=== PATIENT | female | born 1950 | race Caucasian/White ===

== ENCOUNTER 2020-04-17 07:23 | Outpatient (CLI) | payer MEDICARE, SELFPAY ==
--- NOTE | 2020-04-25 11:52 | SLEEP_ITS ---
Home sleep test. DATE OF STUDY: 04/17/2020 ORDERING PHYSICIAN: Clifofrd Amaya M.D. REASON FOR THE STUDY: EVAN. HISTORY: This patient is a 69-year-old female, 4 feet 11 inches tall, weighing 104 pounds with a body mass index of 21. She has difficulty falling asleep and staying asleep. This has been going on for a [id number]. She has tried melatonin, which did not work at all. She is now taking trazodone 25 mg at night. Also, her blood pressure is not under good control. Her son has severe loud snoring. The patient herself denies snoring, awakening at night with heartburn, awakening from sleep, feeling short of breath. She rarely has trouble sleeping with a cold. She does not gasp for breath at night and does not have breathing problems witnessed by others. She rarely sweats excessively at night. She rarely notices her heart pounding or beating irregularly at night. She does not fall asleep during the day, involuntarily, while driving, with physical effort, and she does not have loss of muscle tone with strong emotion. She rarely has daytime difficulty due to sleepiness. She does not feel paralyzed on waking or falling asleep, does not have vivid dreamlike scenes upon awakening or falling asleep. She is not afraid to go to sleep and does not have nightmares. She rarely remembers her dreams. She occasionally has racing thoughts. She rarely feels sad or depressed. She occasionally has anxiety. She rarely has muscular tension. She does not notice parts of her body jerking, she does not kick at night, have crawly achy feelings in her legs or leg pain at night. She does not have morning jaw pain. She constantly grinds her teeth at night. She rarely is bothered by pain during the day, by pain at night, rarely wakes up feeling stiff in the morning with sore or achy muscles. She rarely has pain in her neck and spine. She does have headaches. Bedtime is 12 midnight, falling asleep within 30 minutes. She typically awakens not every night, but on some nights 1 or 2 times for 15 minutes. When she awakens at night she reads on her iPad. She awakens between 6 and 7 in the morning. She does not take naps. A short nap is not refreshing. She does feel good in the morning. MEDICAL COMORBIDITIES: Hypertension, hypothyroidism, recent insomnia, arthritis, nasal allergies, and seasonal allergies. MEDICATIONS: 1. Synthroid 75 mcg a day. 2. Metoprolol 50 mg b.i.d. 3. Hydrochlorothiazide 12.5 mg a day. 4. Amlodipine 10 mg a day. 5. Spironolactone 25 mg a day. 6. Calcium and vitamin D daily. 7. Keymar-3 daily. 8. Trazodone 25 mg h.s. HABITS: Never smoked. No caffeine. Alcohol, 1 drink per week. DESCRIPTION OF THE STUDY: On the [place] Sleepiness Scale, her score is 2. This was conducted as an unattended type 3 portable home sleep test using 4 channel monitoring including respiratory effort channel, oxygen saturation channel, heart rate channel and snoring channel. This study was scored using [facility] guidelines. The duration of the study was 6 hours 50 minutes. The AHI was 6.3. Oxygen desaturation index 6.1. Lowest desaturation 88%. She had no apneas, she had 43 hypopneas, 42 snoring events and 42 desaturations, but spent no time below 88% saturation. Heart rate ranged from 40 to 65. IMPRESSION: This study shows evidence of mild obstructive sleep apnea syndrome, G47.33 with an apnea-hypopnea index of 6.3, oxygen desaturation index of 6.1, and mild desaturation to 88%. She does not have depression. She does have hypertension listed and she is on antihypertensive medications. She does qualify for treatment with CPAP. Auto PAP could be considered. Home sleep test generally underestimate degree of severity of sleep apnea. Her actual AHI may be hi
== END 2020-04-17 07:24 | disposition home or self-care (01) ==
LOC: ANHCSM 07:24
PROVIDERS: PCP Family Medicine; Visit Provider Family Medicine
DX: G47.33 Obstructive sleep apnea (adult) (pediatric) (principal)
CPT/HCPCS: 95806

== ENCOUNTER → 2020-05-18 11:22 | Outpatient (CLI) | payer MEDICARE, SELFPAY ==
--- NOTE | ~2020-05-18 | DEXA_ITS ---
Bone Density Report Name: Meeta Weston Age: 69 Sex: Female Ethnicity: White Date of : 1950 Indication: osteopenia; height loss; prior fracture; postmenopausal Referring Provider: KEVIN RIVERO Study: Bone densitometry was performed. Exam Date: May 18, 2020 Accession number: [id number] Bone Density: Region BMD T-score Z-score Classification AP Spine (L1-L4) 0.895 -1.4 0.7 Osteopenia Femoral Neck (Left) 0.728 -1.1 0.7 Osteopenia Total Hip (Left) 0.729 -1.7 -0.3 Osteopenia Femoral Neck (Right) 0.772 -0.7 1.1 Normal Total Hip (Right) 0.800 -1.2 0.3 Osteopenia Total Hip Mean 0.765 -1.5 0.0 Osteopenia World Health Organization criteria for BMD impression classify patients as: Normal (T-score at or above -1.0), Osteopenia (T-score between -1.0 and -2.5), or Osteoporosis (T-score at or below -2.5). 10-year Fracture Risk(1): Major Osteoporotic Fracture 14% Hip Fracture 1.5% Reported Risk Factors: [place] (), Neck BMD=0.728, BMI=22.8, previous fracture (1) FRAX(R) Version 3.08. Fracture probability calculated for an untreated patient. Fracture probability may be lower if the patient has received treatment. Previous Exams: Region Exam Age BMD T-score BMD Change BMD Change Date g/cm2 vs Baseline vs Previous AP Spine(L1-L4) 05/18/2020 69 0.895 -1.4 -0.230 0.018 05/03/2018 67 0.877 -1.5 -0.247 0.013 11/13/2014 63 0.864 -1.7 -0.261 -0.050* 05/25/2009 58 0.914 -1.2 -0.210 -0.072* 05/01/2006 55 0.985 -0.6 -0.139 -0.139 02/13/2003 52 1.124 0.7 Total Hip(Left) 05/18/2020 69 0.729 -1.7 -0.258 -0.030* 05/03/2018 67 0.759 -1.5 -0.228 -0.022 11/13/2014 63 0.781 -1.3 -0.206 -0.011 05/25/2009 58 0.792 -1.2 -0.194 -0.094 05/01/2006 55 0.886 -0.5 -0.101 -0.101 02/13/2003 52 0.987 0.4 Total Hip(Right) 05/18/2020 69 0.800 -1.2 -0.228 -0.008 05/03/2018 67 0.808 -1.1 -0.220 -0.036* 11/13/2014 63 0.844 -0.8 -0.184 0.015 05/25/2009 58 0.829 -0.9 -0.200 -0.053* 05/01/2006 55 0.882 -0.5 -0.146 -0.146 02/13/2003 52 1.029 0.7 *Denotes significance at 95% confidence level, LSC for AP Spine = 0.022 g/cm2, LSC for Total Hip = 0.027 g/cm2 Clinical Information Provided by Patient:
== END ==
PROVIDERS: PCP Family Medicine; Visit Provider Family Medicine
DX: M85.88 Other specified disorders of bone density and structure, other site (principal); M85.852 Other specified disorders of bone density and structure, left thigh; M85.851 Other specified disorders of bone density and structure, right thigh
CPT/HCPCS: 77080

== ENCOUNTER → 2022-01-03 16:33 | Outpatient (CLI) | payer MEDICARE, SELFPAY ==
--- NOTE | ~2022-01-03 | MM_ITS ---
EXAMINATION: MM screening elroy BI w sarah HISTORY: Screening mammogram TECHNIQUE: Craniocaudal and mediolateral oblique 3-D tomosynthesis images were obtained and synthetic 2-D images were generated. Left rotated lateral craniocaudal view. CAD analysis was submitted and in terpreted. COMPARISON: 05/30/2011, 05/27/2010 bilateral screening mammogram examinations BREAST PARENCHYMAL COMPOSITION: The breasts are heterogeneously dense, which may obscure small masses . FINDINGS: Multiple scattered bilateral benign calcifications are noted. There is no evidence of suspi cious mass, calcification, or architectural distortion to suggest malignancy in either breast. There has been no suspicious interval change. IMPRESSION: 1. No mammographic evidence of malignancy. 2. Recommend routine screening mammography in one year. BI-RADS Category 2: Benign finding(s). Reviewed, dictated and finalized at location A.
== END ==
PROVIDERS: PCP Family Medicine; Visit Provider Physician Assistant Medical
DX: Z12.31 Encounter for screening mammogram for malignant neoplasm of breast (principal)
CPT/HCPCS: 77063; 77067

== ENCOUNTER → 2022-05-20 13:23 | Outpatient (CLI) | payer MEDICARE, SELFPAY ==
--- NOTE | ~2022-05-20 | DEXA_ITS ---
Bone Density Report Name: FAIZAN REVELES Age: 71 Sex: Female Ethnicity: White Date of : 1950 Indication: osteopenia; height loss; prior fracture; postmenopausal Referring Provider: KEVIN RIVERO Study: Bone densitometry was performed. Exam Date: May 20, 2022 Accession number: [id number] Bone Density: Region BMD T-score Z-score Classification AP Spine (L1-L4) 0.846 -1.8 0.4 Osteopenia Femoral Neck (Left) 0.712 -1.2 0.6 Osteopenia Total Hip (Left) 0.718 -1.8 -0.3 Osteopenia Femoral Neck (Right) 0.741 -1.0 0.9 Normal Total Hip (Right) 0.762 -1.5 0.1 Osteopenia Total Hip Mean 0.740 -1.7 -0.1 Osteopenia World Health Organization criteria for BMD impression classify patients as: Normal (T-score at or above -1.0), Osteopenia (T-score between -1.0 and -2.5), or Osteoporosis (T-score at or below -2.5). 10-year Fracture Risk(1): Major Osteoporotic Fracture 14% Hip Fracture 1.8% Reported Risk Factors: [place] (), Neck BMD=0.712, BMI=22.8, previous fracture (1) FRAX(R) Version 3.08. Fracture probability calculated for an untreated patient. Fracture probability may be lower if the patient has received treatment. Previous Exams: Region Exam Age BMD T-score BMD Change BMD Change Date g/cm2 vs Baseline vs Previous AP Spine(L1-L4) 05/20/2022 71 0.846 -1.8 -0.279 -0.049* 05/18/2020 69 0.895 -1.4 -0.230 0.018 05/03/2018 67 0.877 -1.5 -0.247 0.013 11/13/2014 63 0.864 -1.7 -0.261 -0.050* 05/25/2009 58 0.914 -1.2 -0.210 -0.072* 05/01/2006 55 0.985 -0.6 -0.139 -0.139 02/13/2003 52 1.124 0.7 Total Hip(Left) 05/20/2022 71 0.718 -1.8 -0.269 -0.011 05/18/2020 69 0.729 -1.7 -0.258 -0.030* 05/03/2018 67 0.759 -1.5 -0.228 -0.022 11/13/2014 63 0.781 -1.3 -0.206 -0.011 05/25/2009 58 0.792 -1.2 -0.194 -0.094 05/01/2006 55 0.886 -0.5 -0.101 -0.101 02/13/2003 52 0.987 0.4 Total Hip(Right) 05/20/2022 71 0.762 -1.5 -0.267 -0.039* 05/18/2020 69 0.800 -1.2 -0.228 -0.008 05/03/2018 67 0.808 -1.1 -0.220 -0.036* 11/13/2014 63 0.844 -0.8 -0.184 0.015 05/25/2009 58 0.829 -0.9 -0.200 -0.053* 05/01/2006 55 0.882 -0.5 -0.146 -0.146 02/13/2003 52 1.029 0.7
== END ==
PROVIDERS: PCP Family Medicine; Visit Provider Physician Assistant Medical
DX: Z78.0 Asymptomatic menopausal state (principal); M85.88 Other specified disorders of bone density and structure, other site; M85.852 Other specified disorders of bone density and structure, left thigh; M85.851 Other specified disorders of bone density and structure, right thigh
CPT/HCPCS: 77080

== ENCOUNTER → 2023-01-29 16:20 | Outpatient (CLI) | payer MEDICARE, SELFPAY ==
--- NOTE | ~2023-01-29 | MM_ITS ---
EXAMINATION: MM screening elroy BI w sarah HISTORY: Screening mammogram TECHNIQUE: Craniocaudal and mediolateral oblique 3-D tomosynthesis images were obtained and synthetic 2-D images were generated. CAD analysis was submitted and interpreted. COMPARISON: 01/03/2022, 05/30/2011 bilateral screening mammogram examinations BREAST PARENCHYMAL COMPOSITION: The breasts are heterogeneously dense, which may obscure small masses . FINDINGS: Multiple bilateral benign breast calcifications are again noted. There is no evidence of haddad spicious mass, calcification, or architectural distortion to suggest malignancy in either breast. The re has been no suspicious interval change. IMPRESSION: 1. No mammographic evidence of malignancy. 2. Recommend routine screening mammography in one year. BI-RADS Category 2: Benign finding(s). Reviewed, dictated and finalized at location A.
== END ==
PROVIDERS: PCP Family Medicine; Visit Provider Nurse Practitioner
DX: Z12.31 Encounter for screening mammogram for malignant neoplasm of breast (principal)
CPT/HCPCS: 77063; 77067

== ENCOUNTER 2023-07-17 13:28 | Emergency (ER) | payer MEDICARE, OTHER, SELFPAY ==
[2023-07-17 13:45] VITALS: BP 162/61; PULSE 66; RESP 16; TEMP 36.3; O2SAT 100
--- NOTE | 2023-07-17 14:26 | ED.FEMALEGU ---
HPI - Female Genitourinary General Chief complaint: Urogenital-Female Stated complaint: UTI SYMPTOMS Source: patient and RN notes reviewed Mode of arrival: ambulatory Limitations: no limitations History of Present Illness HPI Narrative: 72-year-old female presented for complaint of burning with urination and urgency, onset today. States she thought she noticed blood in the urine this morning. She denies abdominal pain, flank pain, nausea, vomiting diarrhea, fevers or chills. Related Data Home Medications Medication Instructions Recorded Confirmed cholecalciferol (vitamin D3) 50 50 mcg PO DAILY 03/16/20 07/17/23 mcg (2,000 unit) capsule calcium carbonate 600 mg calcium 600 mg PO BID 06/27/20 07/17/23 (1,500 mg) tablet (Calcium) Allergies Allergy/AdvReac Type Severity Reaction Status Date / Time No Known Allergies Allergy Unknown Verified 07/17/23 14:11 Review of Systems Review of Systems: CONSTITUTIONAL: Denies body aches, fever, chills, or sweats. CARDIOVASCULAR: Denies chest pain, palpitations, or edema. RESPIRATORY: Denies cough or dyspnea. GASTROINTESTINAL: Denies abdominal pain, nausea, vomiting, or diarrhea. GENITOURINARY: Reports dysuria, frequency, urgency, hematuria, denies flank pain SKIN: Denies rash, itching, or wounds. MUSCULOSKELETAL: Denies back pain or myalgia. [facility] Past Medical History Medical History (Updated 07/17/23 @ 14:32 by Herlinda Davison APRN) Essential (primary) hypertension Hypothyroidism (acquired) Osteopenia after menopause Prediabetes Scoliosis Sleep apnea with use of continuous positive airway pressure (CPAP) Surgical History Surgical History History of shoulder surgery Family History Family History Mother Patient's mother is , Onset Age: 90 Hypertension Family history of elevated blood lipids Family history of cardiovascular disease Family history of lung cancer Father Patient's father is Family history of glaucoma Hypertension Family history of elevated blood lipids Family history of cardiovascular disease Social History Social History Smoking status: Never smoker Second hand tobacco smoke exposure: No Alcohol intake: current Alcohol use details: Very rarely maybe once a month. Substance use: never Substance use type: does not use Lack of Transportation: No Lack of Food: Never True Current Housing: I Have Housing Concerned About Future Housing: No Difficulty Paying Gas/Electric Bills: No Difficulty Paying for Meds: No Currently Unemployed: No Education: Master's Degree or Higher Difficulty w/ Childcare or Family Care: No Living arrangements: with family Occupation/Education: occupation Gender identity (if verbalized by the patient): Female Spiritual care concerns: No Agree to blood products: Yes Comments At time of signature, I have reviewed and agree with nursing past medical, surgical, social and family history unless otherwise noted. Please see nursing chart for further information. There is no relevant family history pertinent to the presenting complaint Exam Narrative: GENERAL: Well-appearing and in no acute distress. HEAD: Normocephalic EYES: EOMI. . ENT: Mucous membranes pink and moist. NECK: Normal AROM. Supple. CHEST: No respiratory distress. Clear to auscultation. HEART: Regular rate and rhythm. ABDOMEN: Soft, nontender, nondistended, normal active bowel sounds. No CVA tenderness MUSCULOSKELETAL: No bony tenderness. SKIN: Warm, dry, no rash. NEURO: No focal deficits. Alert and oriented x3. Gait steady. PSYCH: Normal affect. Course Course Emergency Course: Patient is aware of diagnosis, understands and agrees to treatment plan. Anticipatory guidance given. Patient agrees to fol
== END 2023-07-17 14:52 | disposition home or self-care (01) ==
PROVIDERS: Emergency Provider Nurse Practitioner Family; PCP Family Medicine
DX: N39.0 Urinary tract infection, site not specified (principal); I10 Essential (primary) hypertension; E03.9 Hypothyroidism, unspecified
CPT/HCPCS: 81003; 87086; 87088; 99213; G0463

== ENCOUNTER 2023-07-24 14:46 | Outpatient (CLI) | payer MEDICARE, OTHER, SELFPAY ==
[2023-07-24 18:54] LABS: Anion Gap 5 mmol/L (8-16); Blood Urea Nitrogen 20 mg/dL (7-17); Calcium 9.5 mg/dL (8.4-10.2); Carbon Dioxide 32 mmol/L (22-30); Chloride 98 mmol/L (98-107); Estimated Glomerular Filt Rate > 60; Glucose 109 mg/dL (65-110); Potassium 4.1 mmol/L (3.4-5.0); Sodium 135 mmol/L (137-145)
[2023-07-27 10:59] LABS: SS-A <1.0; SS-B <1.0
== END 2023-07-24 14:47 | disposition home or self-care (01) ==
PROVIDERS: PCP Family Medicine; Visit Provider Nurse Practitioner Family
DX: E03.9 Hypothyroidism, unspecified (principal); G43.909 Migraine, unspecified, not intractable, without status migrainosus; R42 Dizziness and giddiness; R53.1 Weakness
CPT/HCPCS: 36415; 80048; 84443; 86235

== ENCOUNTER 2023-09-03 07:57 | Outpatient (CLI) | payer MEDICARE, OTHER, SELFPAY ==
--- NOTE | 2023-09-03 | EST_ITS ---
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 Summary 1. 1. Negative dobutamine stress test for ischemic ST changes by ECG criteria. 2. 2. Appropriate hemodynamic response to catecholamines. 3. 3. Negative dobutamine stress echocardiogram for ischemia by wall motion analysis. 4. 4. Patient informed of the above results. Stress Echo Findings Left Ventricle Appropriate increase in contracility with low dose dobutamine infusion. Appropriate increase in endocardial thickening with systole. Appropriate augmentation of contractility with systole. No wall motion abnormality. Left Ventricle Normal LV systolic function, no wall motion abnormality. Protocol: Doubutamine Stress ECG Details Stage: REST Duration (min): 0 min : 54 sec Rojas: --- Speed (mph): 0.0 Grade (%): 0 HR (bpm): 75 SBP (mmHg): 139 DBP (mmHg): 47 METS: --- Stage: REST Duration (min): 30 min : 42 sec Rojas: --- Speed (mph): 0.0 Grade (%): 0 HR (bpm): 68 SBP (mmHg): 139 DBP (mmHg): 47 METS: --- Stage: STAGE 1 Duration (min): 1 min : 0 sec Rojas: --- Speed (mph): 0.0 Grade (%): 0 HR (bpm): 64 SBP (mmHg): 139 DBP (mmHg): 47 METS: --- Stage: STAGE 1 Duration (min): 2 min : 0 sec Rojas: --- Speed (mph): 0.0 Grade (%): 0 HR (bpm): 60 SBP (mmHg): 139 DBP (mmHg): 47 METS: --- Stage: STAGE 1 Duration (min): 3 min : 0 sec Rojas: --- Speed (mph): 0.0 Grade (%): 0 HR (bpm): 62 SBP (mmHg): 130 DBP (mmHg): 73 METS: --- Stage: STAGE 2 Duration (min): 1 min : 0 sec Rojas: --- Speed (mph): 0.0 Grade (%): 0 HR (bpm): 66 SBP (mmHg): 130 DBP (mmHg): 73 METS: --- Stage: STAGE 2 Duration (min): 2 min : 0 sec Rojas: --- Speed (mph): 0.0 Grade (%): 0 HR (bpm): 67 SBP (mmHg): 130 DBP (mmHg): 73 METS: --- Stage: STAGE 2 Duration (min): 3 min : 0 sec Rojas: --- Speed (mph): 0.0 Grade (%): 0 HR (bpm): 64 SBP (mmHg): 135 DBP (mmHg): 64 METS: --- Stage: STAGE 3 Duration (min): 1 min : 0 sec Rojas: --- Speed (mph): 0.0 Grade (%): 0 HR (bpm): 76 SBP (mmHg): 157 DBP (mmHg): 60 METS: --- Stage: STAGE 3 Duration (min): 2 min : 0 sec Rojas: --- Speed (mph): 0.0 Grade (%): 0 HR (bpm): 93 SBP (mmHg): 157 DBP (mmHg): 60 METS: --- Stage: STAGE 3 Duration (min): 3 min : 0 sec Rojas: --- Speed (mph): 0.0 Grade (%): 0 HR
== END 2023-09-03 07:58 | disposition home or self-care (01) ==
LOC: ANHCARD 07:58
PROVIDERS: PCP Family Medicine; Visit Provider Nurse Practitioner Family
DX: I34.89 Other nonrheumatic mitral valve disorders (principal)
CPT/HCPCS: 93351; J0461; J1250

== ENCOUNTER 2023-12-12 10:57 | Emergency (ER) | payer MEDICARE, OTHER, SELFPAY ==
--- NOTE | 2023-12-12 11:14 | ED.FEMALEGU ---
HPI - Female Genitourinary General Chief complaint: Urogenital-Female Stated complaint: UTI SYMPTOMS Source: patient and RN notes reviewed Mode of arrival: ambulatory Limitations: no limitations History of Present Illness HPI Narrative: 72 y/o female presented for c/o urinary pressure, burning, and blood in urine. Onset one hour [employer]. Denies nausea, vomiting, abdominal pain, flank pain, constipation, diarrhea, fevers or chills. Denies significant history of UTIs. Related Data Home Medications Medication Instructions Recorded Confirmed cholecalciferol (vitamin D3) 50 50 mcg PO DAILY 03/16/20 07/24/23 mcg (2,000 unit) capsule calcium carbonate 600 mg calcium 600 mg PO BID 06/27/20 07/24/23 (1,500 mg) tablet (Calcium) Allergies Allergy/AdvReac Type Severity Reaction Status Date / Time No Known Allergies Allergy Unknown Verified 07/24/23 14:16 Review of Systems Review of Systems: CONSTITUTIONAL: Denies body aches, fever, chills, or sweats. CARDIOVASCULAR: Denies chest pain, palpitations, or edema. RESPIRATORY: Denies cough or dyspnea. GASTROINTESTINAL: Denies abdominal pain, nausea, vomiting, or diarrhea. GENITOURINARY: Reports dysuria, frequency, urgency, hematuria, denies flank pain SKIN: Denies rash, itching, or wounds. MUSCULOSKELETAL: Denies back pain or myalgia. [facility] Past Medical History Medical History Essential (primary) hypertension Hypothyroidism (acquired) Osteopenia after menopause Prediabetes Scoliosis Sleep apnea with use of continuous positive airway pressure (CPAP) Surgical History Surgical History History of shoulder surgery Family History Family History Mother Patient's mother is , Onset Age: 90 Hypertension Family history of elevated blood lipids Family history of cardiovascular disease Family history of lung cancer Father Patient's father is Family history of glaucoma Hypertension Family history of elevated blood lipids Family history of cardiovascular disease Social History Social History Smoking status: Never smoker Second hand tobacco smoke exposure: No Alcohol intake: current Alcohol use details: Very rarely maybe once a month. Substance use: never Substance use type: does not use Lack of Transportation: No Lack of Food: Never True Current Housing: I Have Housing Concerned About Future Housing: No Difficulty Paying Gas/Electric Bills: No Difficulty Paying for Meds: No Currently Unemployed: No Education: Master's Degree or Higher Difficulty w/ Childcare or Family Care: No Living arrangements: with family Occupation/Education: occupation Gender identity (if verbalized by the patient): Female Spiritual care concerns: No Agree to blood products: Yes Comments At time of signature, I have reviewed and agree with nursing past medical, surgical, social and family history unless otherwise noted. Please see nursing chart for further information. There is no relevant family history pertinent to the presenting complaint Exam Narrative: GENERAL: Well-appearing ENT: Mucous membranes pink and moist. NECK: Normal AROM. Supple. CHEST: No respiratory distress. Clear to auscultation. HEART: Regular rate and rhythm. ABDOMEN: Soft, nontender, nondistended, normal active bowel sounds. No CVA tenderness MUSCULOSKELETAL: No bony tenderness. SKIN: Warm, dry, no rash. NEURO: No focal deficits. Alert and oriented x3. Gait steady. PSYCH: Normal affect. Course Course Emergency Course: Patient is aware of diagnosis, understands and agrees to treatment plan. Anticipatory guidance given. Patient agrees to follow-up as directed and is aware of reasons to seek care at the emergency depa
[2023-12-12 11:16] VITALS: BP 139/76; PULSE 62; RESP 16; TEMP 36.3; O2SAT 100
== END 2023-12-12 11:28 | disposition home or self-care (01) ==
PROVIDERS: Emergency Provider Nurse Practitioner Family; PCP Family Medicine
DX: N39.0 Urinary tract infection, site not specified (principal); B96.20 Unspecified Escherichia coli [E. coli] as the cause of diseases classified elsewhere; R31.9 Hematuria, unspecified; I10 Essential (primary) hypertension; E03.9 Hypothyroidism, unspecified; M85.80 Other specified disorders of bone density and structure, unspecified site; R73.03 Prediabetes; M41.9 Scoliosis, unspecified; G47.30 Sleep apnea, unspecified
CPT/HCPCS: 81003; 87077; 87086; 87088; 87186; 99213; G0463

== ENCOUNTER 2024-03-13 18:57 | Emergency (ER) | payer MEDICARE, OTHER, SELFPAY ==
--- NOTE | 2024-03-13 18:59 | ED.EYEPROB ---
HPI - Eye Problem General Chief complaint: Eye Problems Stated complaint: Red Eye Time Seen by Provider: 03/13/24 18:58 Source: patient Mode of arrival: ambulatory Limitations: no limitations History of Present Illness HPI Narrative: Meeta is a 73-year-old female patient presenting to the clinic today with complaints of redness in her eye that began today. She also reports some green yellowish discharge coming from the eye. States she does wear contacts and had difficulty getting contact out. Does not have tearing or pain in the eye so she does not feel as though she has a corneal abrasion as she has had this before. She denies any visual changes Related Data Home Medications Medication Instructions Recorded Confirmed cholecalciferol (vitamin D3) 50 50 mcg PO DAILY 03/16/20 03/13/24 mcg (2,000 unit) capsule calcium carbonate (Calcium 600) 600 mg PO BID 06/27/20 03/13/24 Allergies Allergy/AdvReac Type Severity Reaction Status Date / Time No Known Allergies Allergy Unknown Verified 03/13/24 19:10 Review of Systems Review of Systems: Pertinent positives per HPI. Patient denies any fever, chills, rash, headache, visual changes, dizziness, cough, runny nose, sore throat, shortness of breath, chest pain, palpitations, nausea, vomiting, diarrhea, constipation, abdominal pain, or any urinary issues. [facility] Past Medical History Medical History Essential (primary) hypertension Hypothyroidism (acquired) Osteopenia after menopause Prediabetes Scoliosis Sleep apnea with use of continuous positive airway pressure (CPAP) Surgical History Surgical History History of shoulder surgery Family History Family History Mother Patient's mother is , Onset Age: 90 Hypertension Family history of elevated blood lipids Family history of cardiovascular disease Family history of lung cancer Father Patient's father is Family history of glaucoma Hypertension Family history of elevated blood lipids Family history of cardiovascular disease Social History Social History Smoking status: Never smoker Second hand tobacco smoke exposure: No Alcohol intake: current Alcohol use details: Very rarely maybe once a month. Substance use: never Substance use type: does not use Lack of Transportation: No Lack of Food: Never True Current Housing: I Have Housing Concerned About Future Housing: No Difficulty Paying Gas/Electric Bills: No Difficulty Paying for Meds: No Currently Unemployed: No Education: Master's Degree or Higher Difficulty w/ Childcare or Family Care: No Living arrangements: with family Occupation/Education: occupation Gender identity (if verbalized by the patient): Female Spiritual care concerns: No Agree to blood products: Yes Comments At the time of my signature, I reviewed and agree with the nursing past medical, surgical, social, and family history. There is no relevant family history pertinent to the patient complaint. Exam Narrative: General: Well-developed, well nourished, in no apparent distress Head: Normocephalic, atraumatic Eyes: Pupils equally round and reactive to light bilaterally, EOM intact, right sclera and conjunctive clear, left sclera and conjunctiva injected with yellow-green discharge Ears: TMs intact and clear, ear canals clear, no drainage, grossly hearing normal. Nose: Nares patent, no discharge, no inflammation, no sinus tenderness. Mouth: Oropharynx without lesions or masses, good dentition, MMM. Neck: Supple, trachea midline, no enlargement of anterior or posterior cervical nodes, no thyroid masses or goiter palpable. Cardio: Regular rate and rhythm, s1 and s2 normal, no murmur appreciat
[2024-03-13 19:10] VITALS: BP 153/74; PULSE 64; RESP 16; TEMP 36.9; O2SAT 99
== END 2024-03-13 19:39 | disposition home or self-care (01) ==
PROVIDERS: Emergency Provider Nurse Practitioner Family
DX: H10.31 Unspecified acute conjunctivitis, right eye (principal); I10 Essential (primary) hypertension; E03.9 Hypothyroidism, unspecified; M85.80 Other specified disorders of bone density and structure, unspecified site; R73.03 Prediabetes; M41.9 Scoliosis, unspecified; G47.33 Obstructive sleep apnea (adult) (pediatric)
CPT/HCPCS: 99213; G0463

== ENCOUNTER 2024-08-10 15:49 | Outpatient (CLI) | payer MEDICARE, SELFPAY ==
--- NOTE | ~2024-08-10 | MM_ITS ---
EXAMINATION: MM screening elroy BI w sarah HISTORY: Screening TECHNIQUE: Craniocaudal and mediolateral oblique 3-D tomosynthesis images were obtained and synthetic 2-D images were generated. CAD analysis was submitted and interpreted. COMPARISON: Comparison to multiple prior studies sequentially, with oldest reviewed study dated 10/2021. BREAST PARENCHYMAL COMPOSITION: Dense: The breasts are heterogeneously dense, which may obscure small masses FINDINGS: There are developing nodular asymmetries in the lower outer quadrant of the right breast, m iddle third. The left breast is stable without evidence for malignancy. IMPRESSION: 1. Developing right breast asymmetries. 2. Additional mammographic views and possible breast ultrasound are recommended. BI-RADS Category 0: Incomplete: Needs additional imaging evaluation. Reviewed, dictated and finalized at location B. [facility] IMPRESSION: 1. Developing right breast asymmetries. 2. Additional mammographic views and possible breast ultrasound are recommended . BI-RADS Category 0: Incomplete: Needs additional imaging evaluation.
== END 2024-08-10 15:50 | disposition home or self-care (01) ==
LOC: MICIMG 15:50
PROVIDERS: PCP Nurse Practitioner; Visit Provider Nurse Practitioner
DX: Z12.31 Encounter for screening mammogram for malignant neoplasm of breast (principal); R92.8 Other abnormal and inconclusive findings on diagnostic imaging of breast
CPT/HCPCS: 77063; 77067

== ENCOUNTER 2024-09-05 08:50 | Outpatient (CLI) | payer MEDICARE, SELFPAY ==
--- NOTE | ~2024-09-05 | MM_ITS ---
EXAMINATION: MM diagnostic elroy RT w sarah HISTORY: Right breast asymmetry TECHNIQUE: Additional 3-D tomosynthesis images of the right breast were performed and synthetic 2-D i mages were generated. CAD analysis was submitted and interpreted. COMPARISON: 08/10/2024, 01/29/2023 BREAST PARENCHYMAL COMPOSITION:Dense: The breasts are heterogeneously dense, which may obscure small masses. FINDINGS: Right breast asymmetry effaces with spot compression. No persistent mass lesion or distorti on. No suspicious microcalcification. IMPRESSION: No mammographic evidence for malignancy. BI-RADS Category 1: Negative Reviewed, dictated and finalized at location . F SCIENTIST
== END 2024-09-05 08:51 | disposition home or self-care (01) ==
LOC: MICIMG 08:51
PROVIDERS: PCP Nurse Practitioner; Visit Provider Nurse Practitioner
DX: R92.8 Other abnormal and inconclusive findings on diagnostic imaging of breast (principal)
CPT/HCPCS: 77061; 77065; G0279

== ENCOUNTER 2024-09-22 08:01 | Emergency (ER) | payer MEDICARE, SELFPAY ==
[2024-09-22 08:22] VITALS: BP 130/61; PULSE 59; RESP 16; TEMP 36.4; O2SAT 99
--- NOTE | 2024-09-22 08:22 | ED_ITS ---
HPI - Female Genitourinary General Chief complaint: Urogenital-Female Stated complaint: UTI SYMPTOMS Time Seen by Provider: 09/22/24 08:15 Source: patient Mode of arrival: ambulatory Limitations: no limitations History of Present Illness HPI Narrative: Meeta is a 73-year-old female patient presenting to the clinic today with complaints of a possible urinary tract infection. Reports last night she started to have burning with urination and pressure in the lower abdomen. She denies any flank pain, fevers, chills, body aches, or nausea/vomiting. Related Data Home Medications ?Medication ?Instructions ?Recorded ?Confirmed ?Last Taken ?Type cholecalciferol (vitamin D3) 50 50 mcg PO DAILY 03/16/20 09/22/24 Unknown History mcg (2,000 unit) capsule calcium carbonate (Calcium 600) 600 mg PO BID 06/27/20 09/22/24 Unknown History Allergies Allergy/AdvReac Type Severity Reaction Status Date / Time No Known Allergies Allergy Unknown Verified 09/22/24 08:11 Review of Systems Review of Systems: Pertinent positives per HPI. Patient denies any fever, chills, rash, headache, visual changes, dizziness, cough, runny nose, sore throat, shortness of breath, chest pain, palpitations, nausea, vomiting, diarrhea, constipation, abdominal pain. [facility] Past Medical History Medical History Essential (primary) hypertension Hypothyroidism (acquired) Osteopenia after menopause Prediabetes Scoliosis Sleep apnea with use of continuous positive airway pressure (CPAP) Surgical History Surgical History History of shoulder surgery Family History Family History Mother Patient's mother is , Onset Age: 90 Hypertension Family history of elevated blood lipids Family history of cardiovascular disease Family history of lung cancer Father Patient's father is Family history of glaucoma Hypertension Family history of elevated blood lipids Family history of cardiovascular disease Social History Social History Smoking status: Never smoker Second hand tobacco smoke exposure: No Alcohol intake: current Alcohol use details: Very rarely maybe once a month. Substance use: never Substance use type: does not use Lack of Transportation: No Lack of Food: Never True Current Housing: I Have Housing Concerned About Future Housing: No Difficulty Paying Gas/Electric Bills: No Difficulty Paying for Meds: No Currently Unemployed: No Education: Master's Degree or Higher Difficulty w/ Childcare or Family Care: No Living arrangements: with family Occupation/Education: occupation Gender identity (if verbalized by the patient): Female Spiritual care concerns: No Agree to blood products: Yes Comments At the time of my signature, I reviewed and agree with the nursing past medical, surgical, social, and family history. There is no relevant family history pertinent to the patient complaint. Exam Narrative: General: Well-developed, well nourished, in no apparent distress. Head: Normocephalic, atraumatic. Cardio: Regular rate and rhythm, s1 and s2 normal, no murmur appreciated. Resp: Clear to auscultation bilaterally, no rhonchi, rales, wheezing or rubs. Abdomen: Soft, pliable, bowel sounds present in all quadrants, suprapubic tenderness to palpation, no organomegly, no CVAT tenderness. Course Course Emergency Course: Portions of this record may have been created with voice recognition software. Level of Care: Express Care Visit Vital Signs Vital signs: Vital signs reviewed MDM - Female Genitourinary MDM Narrative Medical decision making narrative: At the time of visit patient is resting comfortably on the exam table. Patient appears to be nontoxic. Labs: Urine culture was sent to the lab. Patient's urinalysis was bloody so we were unable to do UA dip. Plan: I suspect patient has acute UTI with hematuria. Review patient's last urinary culture and was positive for E coli and was susceptible to Bactrim. Prescription for Bactrim was sent to the pharmacy. Supportive measures were discussed with the patient and they voiced understanding discharge instructions and agrees to treatment plan. Return precautions reviewed Differential Diagnosis Differential diagnosis: Likely urinary tract infection and cystitis Discharge Plan Discharge Clinical Impression: Acute lower UTI Patient Disposition: Home, Self-Care Condition: Stable Instructions: Antibiotic Form, Urinary Tract Infection in Women (ED), Urinary Tract Infection in (ED) Additional Instructions: We will send urine for culture Take Bactrim as directed. Hold taking Spironolactone while taking the Bactrim as these medications interact. Increase fluids and stay well hydrated Wipe front to back. May use wet wipes. Avoid tub baths If sexually active- pee before and after intercourse. Wear cotton panties Avoid tight clothing up against the genitals Follow up with your PCP in 1 week if symptoms persist. Patient Language: Romansh Prescriptions: New sulfamethoxazole-trimethoprim [Bactrim DS] 800-160 mg tablet 1 tablet PO Q12H 7 Days Qty: 14 0RF No Action cholecalciferol (vitamin D3) 50 mcg (2,000 unit) capsule 50 mcg PO DAILY calcium carbonate [Calcium 600] 600 mg calcium (1,500 mg) tablet 600 mg PO BID Breo Ellipta 100-25 mcg/dose blister with device 1 inh INHALATION DAILY Qty: 180 3RF rosuvastatin 5 mg tablet 5 mg PO DAILY Qty: 90 1RF metoprolol succinate 50 mg tablet extended release 24 hr 100 mg PO DAILY Qty: 180 1RF amlodipine 10 mg tablet See Rx Instructions .ROUTE .COMPLEX Qty: 90 3RF Dose Instruction: TAKE 1 TABLET BY MOUTH EVERY DAY Rx Instructions: TAKE 1 TABLET BY MOUTH EVERY DAY spironolactone 25 mg tablet See Rx Instructions .ROUTE .COMPLEX Qty: 90 1RF Dose Instruction: TAKE 1 TABLET BY MOUTH EVERY DAY Rx Instructions: TAKE 1 TABLET BY MOUTH EVERY DAY metformin 500 mg tablet extended release 24 hr 1,000 mg PO DAILY Qty: 180 3RF Rx Instructions: Take with largest meal hydrochlorothiazide 12.5 mg capsule See Rx Instructions .ROUTE .COMPLEX Qty: 90 1RF Dose Instruction: TAKE 1 CAPSULE BY MOUTH EVERY DAY Rx Instructions: TAKE 1 CAPSULE BY MOUTH EVERY DAY trazodone 50 mg tablet 50 mg PO QHS Qty: 90 3RF levothyroxine [Synthroid] 75 mcg tablet 75 mcg PO DAILY Qty: 90 1RF Follow-up/Referrals: Clifford Amaya MD [Primary Care Provider] - Time of Disposition: 08:20 Quality NIHSS Nursing Documentation ED NIHSS nursing documentation: reviewed/agree
== END 2024-09-22 08:26 | disposition home or self-care (01) ==
PROVIDERS: Emergency Provider Nurse Practitioner Family; PCP Family Medicine
DX: N39.0 Urinary tract infection, site not specified (principal); E03.9 Hypothyroidism, unspecified; I10 Essential (primary) hypertension
CPT/HCPCS: 87077; 87086; 87186; 99213; G0463

== ENCOUNTER 2024-10-08 16:13 | Emergency (ER) | payer MEDICARE, SELFPAY ==
--- NOTE | 2024-10-08 16:22 | ED_ITS ---
HPI - Female Genitourinary General Chief complaint: Urogenital-Female Stated complaint: Uti Symptoms Time Seen by Provider: 10/08/24 16:15 Source: patient Mode of arrival: ambulatory Limitations: no limitations History of Present Illness HPI Narrative: Patient is a 73-year-old female who presents with urinary urgency, burning and frequency. Patient was seen here 09/22 for similar symptoms and was given Bactrim. Patient was told to stop taking spironolactone while on Bactrim. Patient started have swelling in feet and talk to her doctor. Patient. Take Bactrim is started taking blood pressure medicine again. Patient states she only had a few doses of Bactrim left. Denies any low back pain fever chills, nausea, vomiting diarrhea. MD elicited complaint: dysuria Related Data Home Medications ?Medication ?Instructions ?Recorded ?Confirmed ?Last Taken ?Type cholecalciferol (vitamin D3) 50 50 mcg PO DAILY 03/16/20 09/22/24 Unknown History mcg (2,000 unit) capsule calcium carbonate (Calcium 600) 600 mg PO BID 06/27/20 09/22/24 Unknown History Allergies Allergy/AdvReac Type Severity Reaction Status Date / Time No Known Allergies Allergy Unknown Verified 09/22/24 08:11 Review of Systems Review of Systems: All systems reviewed & are unremarkable except as noted in HPI and below Constitutional: Constitutional: Denies chills, Denies fever(s), Denies headache(s), Denies malaise and Denies weakness Eyes: Eyes: Denies change in vision, Denies eye discharge and Denies irritation ENT: Denies otalgia, Denies headache(s), Denies nasal congestion, Denies nasal discharge, Denies sinus pain and Denies sore throat Cardiovascular: Cardiovascular: Denies chest pain, Denies edema, Denies palpitations and Denies dyspnea Respiratory: Respiratory: Denies cough and Denies dyspnea Gastrointestinal: Gastrointestinal: Denies abdominal pain, Denies diarrhea, Denies nausea and Denies vomiting Genitourinary: Genitourinary: Denies hematuria, Reports nocturia, Reports dysuria, Denies flank pain and Reports urinary urgency Musculoskeletal: Musculoskeletal: Denies back pain and Denies numbness Integumentary/Breasts: Skin/Breast: Denies pruritus and Denies rash Neurologic: Denies headache(s), Denies numbness and Denies weakness Psychiatric: Psychiatric: Reports no additional psychiatric complaints Endocrine: Endocrine: Denies palpitations PMFSH Past Medical History Medical History Prediabetes Osteopenia after menopause Sleep apnea with use of continuous positive airway pressure (CPAP) Scoliosis Essential (primary) hypertension Hypothyroidism (acquired) Surgical History Surgical History History of shoulder surgery Family History Family History Mother Patient's mother is , Onset Age: 90 Hypertension Family history of elevated blood lipids Family history of cardiovascular disease Family history of lung cancer Father Patient's father is Family history of glaucoma Hypertension Family history of elevated blood lipids Family history of cardiovascular disease Social History Social History Smoking status: Never smoker Second hand tobacco smoke exposure: No Alcohol intake: current Alcohol use details: Very rarely maybe once a month. Substance use: never Substance use type: does not use Lack of Transportation: No Lack of Food: Never True Current Housing: I Have Housing Concerned About Future Housing: No Difficulty Paying Gas/Electric Bills: No Difficulty Paying for Meds: No Currently Unemployed: No Education: Master's Degree or Higher Difficulty w/ Childcare or Family Care: No Living arrangements: with family Occupation/Education: occupation Gender identity (if verbalized by the patient): Female Spiritual care concerns: No Agree to blood products: Yes Comments At time of signature, agree with nursing past medical, surgical, social and family history. There is no relevant family history pertinent to the presenting complaint. Exam Const: General: cooperative, healthy appearing, comfortable, no acute distress and well nourished Nutritional Appearance: well nourished Orientation/consciousness: patient oriented x3 HENMT: Head: normocephalic and atraumatic Ears: external ears normal Face/Nose/Sinus: Normal external nose present, Normal nares present and normal facial exam Face and sinus: normal facial exam Eyes: General: appearance normal, both eyes and all related structures Pupils: Equal, round and reactive pupils present EOM: EOMs intact bilaterally Neck: Neck: normal visual inspection, full ROM and supple Chest: Chest palpation & inspection: normal inspection of the chest Resp: Effort & Inspection: normal respiratory effort and able to speak in complete sentences Cardio: Rate: regular rate Rhythm: regular rhythm GI: Inspection: normal to inspection GI Palp: No abdominal tenderness and Yes Soft to palpation : General: Yes no CVA tenderness Back/Spine/Pelvis: Back: no CVA tenderness Skin: General skin exam: normal color and no rashes or lesions noted Neuro: General: patient oriented x3 and moves all extremities Cranial nerves: Yes Equal, round and reactive pupils present Extrem: General: normal to inspection and full ROM Psych: Appearance: grossly normal and well kempt Course Course Emergency Course: Patient is aware of diagnosis, understands and agrees to treatment plan. Anticipatory guidance given. Patient agrees to follow-up as directed and is aware of reasons to seek care at the emergency department. Portions of this record may have been created with voice recognition software Level of Care: Express Care Visit Vital Signs Vital signs: Vital Signs Temperature 36.8 C 10/08/24 16:26 Pulse Rate 73 10/08/24 16:26 Respiratory Rate 16 10/08/24 16:26 Blood Pressure 155/64 H 10/08/24 16:26 Pulse Oximetry 100 10/08/24 16:26 Temperature 36.8 C 10/08/24 16:26 Pulse Rate 73 10/08/24 16:26 Respiratory Rate 16 10/08/24 16:26 Blood Pressure 155/64 H 10/08/24 16:26 Pulse Oximetry 100 10/08/24 16:26 Reviewed MDM - Female Genitourinary MDM Narrative Medical decision making narrative: Exam findings and UA show probable UTI; patient is non-toxic appearing and is in no distress. No CMT, adnexal tenderness, or evidence of pelvic etiology. Patient is appropriate for outpatient treatment and follow-up. Differential Diagnosis Differential diagnosis: Likely urinary tract infection, bacterial vaginosis, trichomoniasis, cervicitis, vaginitis and cystitis Medical Records Attestation: I reviewed the patient's medical records. Lab Data Attestation: I reviewed the patient's lab results. Labs: Lab Results 10/08/24 Range/Units 16:30 POC Urine Color Yellow POC Urine Clarity Clear POC Urine pH 5.5 POC Ur Specif [place] 1.005 POC Urine Protein Negative (Negative) POC Ur Glucose (UA) Negative (Negative) POC Urine Ketones Negative (Negative) POC Urine Blood 2+ (Negative) POC Urine Nitrite Negative (Negative) POC Urine Bilirubin Negative (Negative) POC Urine Urobilinogen 0.2 POC U Leukocyte Esteras 2+ (Negative) Discharge Plan Discharge Clinical Impression: Urinary tract infection Qualifiers: Urinary tract infection type: acute cystitis Hematuria presence: with hematuria Qualified Code(s): N30.01 - Acute cystitis with hematuria Patient Disposition: Home, Self-Care Condition: Stable Instructions: Urinary Tract Infection in Women (ED) Additional Instructions: We will send a urine culture to the lab, based on your symptoms and urine dip we will start treatment today. If culture comes back and bacteria is not susceptible to antibiotic, your prescription may change. Your symptoms should improve within a day of starting antibiotics, but you should finish all the antibiotic pills you get. Otherwise your infection might come back Continue with increased water intake. Take Tylenol or ibuprofen as needed for pain or fever. Follow-up with primary care provider for urine recheck or see ER visit if condition worsens with high fever, nausea, vomiting, severe back pain Your blood pressure was elevated above 120/80 today at Urgent Care. This puts you above the threshold for follow up visit with a primary care provider. High blood pressure does not usually cause any symptoms, however it may lead to kidney failure, stroke, heart disease just to name a few if untreated . Many people are anxious when seeing a provider or nurse. As a result, you are not diagnosed with hypertension at this time unless your blood pressure is persistently high at two office visits at least one week apart. Some things that can help lower blood pressure are lifestyle modifications, such as light exercise, decreased salt in diet, and weight loss. It is important to follow up with a PCP about this within 1 week. Patient Language: Italian Prescriptions: New cephalexin 500 mg capsule 500 mg PO BID 5 Days Qty: 10 0RF No Action sulfamethoxazole-trimethoprim [Bactrim DS] 800-160 mg tablet 1 tablet PO Q12H 7 Days Qty: 14 0RF cholecalciferol (vitamin D3) 50 mcg (2,000 unit) capsule 50 mcg PO DAILY calcium carbonate [Calcium 600] 600 mg calcium (1,500 mg) tablet 600 mg PO BID Breo Ellipta 100-25 mcg/dose blister with device 1 inh INHALATION DAILY Qty: 180 3RF metoprolol succinate 50 mg tablet extended release 24 hr 100 mg PO DAILY Qty: 180 1RF amlodipine 10 mg tablet See Rx Instructions .ROUTE .COMPLEX Qty: 90 3RF Dose Instruction: TAKE 1 TABLET BY MOUTH EVERY DAY Rx Instructions: TAKE 1 TABLET BY MOUTH EVERY DAY spironolactone 25 mg tablet See Rx Instructions .ROUTE .COMPLEX Qty: 90 1RF Dose Instruction: TAKE 1 TABLET BY MOUTH EVERY DAY Rx Instructions: TAKE 1 TABLET BY MOUTH EVERY DAY metformin 500 mg tablet extended release 24 hr 1,000 mg PO DAILY Qty: 180 3RF Rx Instructions: Take with largest meal hydrochlorothiazide 12.5 mg capsule See Rx Instructions .ROUTE .COMPLEX Qty: 90 1RF Dose Instruction: TAKE 1 CAPSULE BY MOUTH EVERY DAY Rx Instructions: TAKE 1 CAPSULE BY MOUTH EVERY DAY trazodone 50 mg tablet 50 mg PO QHS Qty: 90 3RF levothyroxine [Synthroid] 75 mcg tablet 75 mcg PO DAILY Qty: 90 1RF rosuvastatin 5 mg tablet See Rx Instructions .ROUTE .COMPLEX Qty: 90 1RF Dose Instruction: TAKE 1 TABLET BY MOUTH EVERY DAY Rx Instructions: TAKE 1 TABLET BY MOUTH EVERY DAY Follow-up/Referrals: Clifford Amaya MD [Primary Care Provider] - 3 Days Time of Disposition: 16:44
[2024-10-08 16:26] VITALS: BP 155/64; PULSE 73; RESP 16; TEMP 36.8; O2SAT 100
[2024-10-08 16:32] LABS: EDUAAPPEAR Clear; EDUABILI Negative (Negative); EDUABLOOD 2+ (Negative); EDUACOLOR1 Yellow; EDUAGLUCOSE Negative (Negative); EDUAKETONE Negative (Negative); EDUALEUKO 2+ (Negative); EDUANITRATE Negative (Negative); EDUAPH 5.5; EDUAPROTEIN Negative (Negative); EDUASPGRAVITY 1.005; EDUAUROBILI 0.2
== END 2024-10-08 16:55 | disposition home or self-care (01) ==
PROVIDERS: Emergency Provider Nurse Practitioner Family; PCP Family Medicine
DX: N30.01 Acute cystitis with hematuria (principal); B96.1 Klebsiella pneumoniae [K. pneumoniae] as the cause of diseases classified elsewhere; I10 Essential (primary) hypertension; E03.9 Hypothyroidism, unspecified; R73.03 Prediabetes; M85.80 Other specified disorders of bone density and structure, unspecified site; G47.30 Sleep apnea, unspecified
CPT/HCPCS: 81003; 87077; 87086; 87186; 99213; G0463

== ENCOUNTER 2024-12-07 12:11 | Outpatient (CLI) | payer MEDICARE, SELFPAY ==
--- NOTE | ~2024-12-07 | DEXA_ITS ---
Bone Density Report Name: FAIZAN REVELES Age: 73 Sex: Female Ethnicity: White Date of : 1950 Indication: postmenopausal; screening for osteoporosis; height loss; Referring Provider: KEVIN RIVERO Study: Bone densitometry was performed. Exam Date: December 07, 2024 Accession number: [id number] Bone Density: Region BMD T-score Z-score Classification AP Spine(L1-L4) 0.827 -2.0 0.3 Osteopenia Femoral Neck (Left) 0.653 -1.8 0.3 Osteopenia Total Hip (Left) 0.705 -1.9 -0.2 Osteopenia Femoral Neck (Right) 0.666 -1.7 0.4 Osteopenia Total Hip (Right) 0.741 -1.6 0.1 Osteopenia Total Hip Mean 0.723 -1.8 -0.1 Osteopenia World Health Organization criteria for BMD impression classify patients as: Normal (T-score at or above -1.0), Osteopenia (T-score between -1.0 and -2.5), or Osteoporosis (T-score at or below -2.5). 10-year Fracture Risk(1): Major Osteoporotic Fracture 11% Hip Fracture 2.3% Reported Risk Factors: [place] (), Neck BMD=0.653, BMI=21.7 (1) FRAX(R) Version 3.08. Fracture probability calculated for an untreated patient. Fracture probability may be lower if the patient has received treatment. Clinical Information Provided by Patient: Has used the following medications: Vitamin D, Calcium Patient maximum height was 59 Menopause Age: 54 Onset of menses at age 11 Number of children 2 Impression: The patient has low bone mass, based on the Total Spine T-score. The patient has an estimated ten-year risk of hip fracture of 2.3% and an estimated ten-year risk of major fracture of 11%, based on the WHO FRAX algorithm. Discussion: BONE DENSITY IS LOW AT ONE OR MORE SKELETAL SITES. This patient's lowest T-score is low at one or more skeletal sites. It meets the World Health Organization's (WHO) criteria for ?low bone mass? (T-score between -1.0 and -2.5). The patient's 10-year risk of fracture as calculated by FRAX is less than the threshold where pharmacological therapy is recommended by the National Osteoporosis Foundation (NOF). However, all treatment decisions require clinical judgment and consideration of individual patient factors, including patient preferences, comorbidities, previous drug use, risk factors not captured in the FRAX model (e.g., frailty, falls, vitamin D deficiency, increased bone turnover, interval significant decline in bone density) and possible under or overestimation of fracture risk by FRAX. The patient should follow a healthful lifestyle (good nutrition with adequate calcium and vitamin D, and appropriate weight-bearing exercise). Follow-Up: Consider repeating this study in 2 to 3 years to reassess this patient's status, or sooner if there is some new clinical indication. Reported by: ATUL on 12/07/2024 12:44:00 PM. Reviewed, dictated and finalized at location AMinh ALEMAN
--- OUTSIDE RECORDS SUMMARY | 2024-12-07 13:38 | XMS_ITS | Clinical Summary ---
Author Organization [facility] Address [address] [place] [address] Care Team Providers Care Developer Analyst Name Role Phone Unavailable Primary Care Provider Unavailabl e Source Comments [facility],non-owned Affiliates and Associated Physician Practices is amultiple site organization consisting of ambulatory clinics and hospital sitesin [place], [place], [place] and [place]. This disclosure is being madepursuant to the Care Everywhere program and may not contain all information available regarding this patient. Last updated 18.[facility] Allergies No known active allergies Medications * Be aware that medications may not be up to date on this document. Alwaysverify current medications with the patient. Medication Sig Dispensed Refills Start Date End Date Status fluticasone-salmeterol (ADVAIR DISKUS) 250-50 MCG/DOSE inhaler Inhale 1 Puff by mouth as needed Active levothyroxine (SYNTHROID) 75 MCG tablet Take 75 mcg by mouth daily before breakfast. Active metoprolol succinate XL 24hr (TOPROL XL) 25 MG tablet Take 25 mg by mouth daily. Active Calcium 600 MG TABS Take by mouth daily. Active Family History Medical History Relation Name Comments Heart Failure Father Hypercholesterolemia Father Hypertension Father Cancer Mother Heart Failure Mother Hypercholesterolemia Mother Hypertension Mother Relation Name Status Comments Father Mother Social History Tobacco Use Types Packs/Day Years Used Date Smoking Tobacco: Never Alcohol Use Standard Drinks/Week Comments Yes 1.7 (1 standard drink = 0.6 oz p ure alcohol) 08/25/09] Sex and Gender Information Value Date Recorded Sex Assigned at Not on file Gender Identity Not on file Sexual Orientation Not on file Last Filed Vital Signs Vital Sign Reading Time Taken Comments Blood Pressure 114/60 08/28/2009 11:46 AM ACCOUNT RESOLUTION SPECIALIST Pulse 57 08/28/2009 11:46 AM ACCOUNT RESOLUTION SPECIALIST Temperature 36.1 C (96.9 F) 08/28/2009 11:46 AM ACCOUNT RESOLUTION SPECIALIST Respiratory Rate 18 08/28/2009 11:46 AM ACCOUNT RESOLUTION SPECIALIST Oxygen Saturation 99% 08/28/2009 11:46 AM ACCOUNT RESOLUTION SPECIALIST Inhaled Oxygen Concentration - - Weight 49 kg (108 lb) 08/27/2009 3:56 PM ACCOUNT RESOLUTION SPECIALIST Height 149.9 cm (4' 11 ) 08/27/2009 3:56 PM ACCOUNT RESOLUTION SPECIALIST Body Mass Index 21.81 08/27/2009 3:56 PM ACCOUNT RESOLUTION SPECIALIST Plan of Treatment Health Maintenance Due Date Last Done Comments BONE DENSITY TESTING 1950 COLOGUARD (AGES 45-75) - COL ON CA SCREENING 1950 COLON MONITORING 1950 COLONOSCOPY - COLON CA SCREENING 1950 CT COLONOGRAPHY - COLON CA SCREENING 1950 Colorectal Cancer Screening 1950 FIT - COLON CA SCREENING 1950 FLEX SIG - COLON CA SCREENING 1950 LIPID TESTING 1950 MAMMOGRAM 1950 HEPATITIS C SCREENING 12/20/1968 DTAP/TDAP/TD VACCINES (1 - Tdap) 1969 PNEUMOCOCCAL VACCINE 50+ (1 of 1 - PCV) 2000 ZOSTER VACCINE (1 of 2) 2000 COVID-19 VACCINE ( - 2023-2 5 season) 2024 INFLUENZA VACCINE (#1) 2024 DEPRESSION SCREENING 10/05/2024 Respiratory Syncytial Virus (RSV) Vaccine Pt: or over 60 yrs (1 - 1-dose 75+ series) 2025 HEPATITIS B VACCINE Aged Out No longe r eligible based on patient's age to complete this topic HIB VACCINE Aged Out No longer eligi ble based on patient's age to complete this topic HPV VACCINE Aged Out No longer eligi ble based on patient's age to complete this topic MENINGOCOCCAL (Group B) VACCINE Aged Out No longer eligible based on patient's age to complete this topic MENINGOCOCCAL VACCINE Aged Out No maycol felicita eligible based on patient's age to complete this topic
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
--- OUTSIDE RECORDS SUMMARY | 2024-12-07 13:39 | XMS_ITS | Clinical Summary ---
Author Organization [facility] Address [address], [address] [address] Phone Care Team Providers Care Company Laborer Name Role Phone Clifford Amaya MD Primary Care Provider [phone] Allergies No known active allergies Medications hydroCHLOROthia zide 12.5 MG Tablet Take by mouth daily. Active levothyroxine (SYNTHROID) 75 MCG Tablet Take 75 mcg by mouth daily. Active spironolactone (ALDACTONE) 25 MG Tablet Take 25 mg by mouth daily. Active metoprolol Succinate (TOPROL-XL) 50 MG TABLET SR 24 HR Take 50 mg by mouth daily. Active amLODIPine (NORVASC) 10 MG Tablet Take 10 mg by mouth daily. Active aspirin EC 81 MG Tablet Delayed Response Take 81 mg by mouth daily. Active fluticasone (FLOVENT HFA) 110 MCG/ACT Aerosol take 2 Puffs by inhalation 2 times daily. Active Calcium Carb-Cholecalci ferol (CALCIUM 600 + D PO) Take by mouth. Act estevan Family History Medical History Relation Name Comments Heart Disease Father Heart Disease Mother Lung Cancer Mother Relation Name Status Comments Brother Alive Father Mother Social History Tobacco Use Types Packs/Day Years Used Date Smoking Tobacco: Never Smokeless Tobacco: Never Alcohol Use Standard Drinks/Week Comments Yes 0 (1 standard drink = 0.6 oz pur e alcohol) 1 drink a week Comments Unknown Sex and Gender Information Value Date Recorded Sex Assigned at Not on file Legal Sex Female 11:38 PM CDT Gender Identity Not on file Sexual Orientation Not on file Plan of Treatment Health Maintenance Due Date Last Done Comments DEXA Bone Density 1950 Hepatitis C Virus (HCV) Screening 1950 TdaP Immunization 1950 Cologuard 2000 Immunochemical Fecal Occult Blood 2000 Mammogram 2000 Pneumococcal Immunization (5 0+ years) (1 of 1 - PCV) 2000 Zoster Immunization (1 of 2) 2000 Influenza Immunization (#1) 2024 SARS-COV-2 Immunization (1 - 2023-25 season) 2024 Respiratory Syncytial Virus (RSV) Immunization (Adult) (1 - 1-dose 75+ series) 2025 Colonoscopy 07/01/2028 07/01/2018 Colorectal Cancer Screening 07/01/2028 07/01/2018 Hepatitis B Immunization Aged Out No longer eligible based on patient's age to complete this topic Meningococcal Immunization (ACWY) Aged Out No longer eligible based on patient's age to complete this topic Rotavirus Immunization Aged Out No lo nger eligible based on patient's age to complete this topic Procedures Procedure Name Priority Date/Time Associated Diagnosis Comments COLONOSCOPY Routine 07/01/2018 from Last 3 Months or Most Recently Relevant to Health Maintenance Results * COLONOSCOPY (07/01/2018) Haroon House DO PROCEDURE/MINOR SURGICAL ORDERA BLES Final Result from Last 3 Months or Most Recently Relevant to Health Maintenance Insurance MEDICARE CIGNA MEDICARE SUP Care Teams Company Laborer Relationship Specialty [place] [address] [place] [id number] PCP - General Family Medicine 05/04/18
--- OUTSIDE RECORDS SUMMARY | 2024-12-07 13:39 | XMS_ITS | Referral Summary ---
Author Organization [facility] Address [address] [place] [address] Care Team Providers Care Asw/Asuw Tactical Air Controller Name Role Phone Unavailable Primary Care Provider Unavailabl e Source Comments [facility],non-owned Affiliates and Associated Physician Practices is amultiple site organization consisting of ambulatory clinics and hospital sitesin [place], [place], [place] and [place]. This disclosure is being madepursuant to the Care Everywhere program and may not contain all information available regarding this patient. Last updated 18.[facility] Allergies No known active allergies Medications * [...] MG TABS Take by mouth daily. Active Social History Tobacco Use Types Packs/Day Years [...] Comments Blood Pressure 114/60 08/28/2009 11:46 AM SENIOR UI SOFTWARE ENGINEER Pulse 57 08/28/2009 11:46 AM SENIOR UI SOFTWARE ENGINEER Temperature 36.1 C (96.9 F) 08/28/2009 11:46 AM SENIOR UI SOFTWARE ENGINEER Respiratory Rate 18 08/28/2009 11:46 AM SENIOR UI SOFTWARE ENGINEER Oxygen Saturation 99% 08/28/2009 11:46 AM SENIOR UI SOFTWARE ENGINEER Inhaled Oxygen Concentration - - Weight 49 kg (108 lb) 08/27/2009 3:56 PM SENIOR UI SOFTWARE ENGINEER Height 149.9 cm (4' 11 ) 08/27/2009 3:56 PM SENIOR UI SOFTWARE ENGINEER Body Mass Index 21.81 08/27/2009 3:56 PM SENIOR UI SOFTWARE ENGINEER Plan of Treatment Not on file
--- OUTSIDE RECORDS SUMMARY | 2024-12-07 13:39 | XMS_ITS | Clinical Summary ---
Author Organization [facility] Address [address] [place] [address] Care Team Providers Care Flat Bed Knitter Name Role Phone Clifford Amaya MD Primary Care Provider [phone] [phone] Allergies No known active allergies Medications fluticasone propion-salmete roL (ADVAIR DISKUS) 100-50 mcg/dose diskus inhaler PRN Active amLODIPine (NORVASC) 10 mg tablet Take 10 mg by mouth daily. 3 06/12/2018 Active calcium carbonate-vitam in D3 1500 mg (600 mg elemental) -200 units per tablet Take 2 tablets by mouth daily. Active fluticasone (FLONASE) 50 mcg/actuation nasal spray daily. Active hydroCHLOROthia zide (MICROZIDE) 12.5 mg capsule Take 12.5 mg by mouth daily. 3 06/16/2018 Active SYNTHROID 75 mcg tablet Take 75 mcg by mouth daily. 05/06/2018 Active metoprolol XL (TOPROL-XL) 50 mg 24 hr tablet Take 50 mg by mouth 2 (two) times a day. Active spironolactone (ALDACTONE) 25 mg tablet Take 25 mg by mouth daily. 2 04/20/2018 Active traZODone (DESYREL) 50 mg tablet PRN 0 07/22/2019 Active omega-3/dha/epa /fish oil (OMEGA-3 FISH OIL ORAL) Take 1 tablet by mouth daily Active cholecalciferol (VITAMIN D-3) 2000 unit capsule Take 2,000 Units by mouth daily Active metFORMIN XR (GLUCOPHAGE XR) 500 mg 24 hr tablet TAKE 1 TABLET BY MOUTH EVERY DAY WITH THE LARGEST MEAL 06/02/2022 Active rosuvastatin (CRESTOR) 5 mg tablet Take 5 mg by mouth daily 07/28/2022 Active Active Problems Problem Noted Date Diagnosed Date Obstructive sleep apnea 05/20/2020 Hypertension 08/13/2016 Assessment & Plan (05/20/2020 10:15 PM CDT): Blood pressure a bit higher, but has started on CPAP which will likely help BP control. No changes in meds for now and continue regular use of CPAP. Maintain lifestyle modifications. Monitor BP. Closed fracture of proximal end of humerus 03/06 Arthralgia of shoulder 01/16/2014 Family History Medical History Relation Name Comments Heart disease Father Family history of cardiac disorder - (Added by TW Conv) Hypertension Father Family history of hypertension - (Added by TW Conv) Stroke Father Family history of cerebrovascular accident - (Added by TW Conv) Arthritis Mother Family history of arthritis - (Added by TW Conv) Cancer Mother Family history of malignant neoplasm - (Added by TW Conv) Heart disease Mother Family history of cardiac disorder - (Added by TW Conv) Hypertension Mother Family history of hypertension - (Added by TW Conv) Lung disease Mother Family history of lung disease - (Added by TW Conv) Stroke Mother Family history of cerebrovascular accident - (Added by TW Conv) Relation Name Status Comments Father Mother Social History Tobacco Use Types Packs/Day Years Used Date Smoking Tobacco: Never Smokeless Tobacco: Never Tobacco Cessation:Counseling Given: Not Answered Comments Unknown Sex and Gender Information Value Date Recorded Sex Assigned at Not on file Legal Sex Female 6:23 AM APPLIQUER ZIGZAG Gender Identity Not on file Sexual Orientation Not on file Obstetrics History Last Filed Vital Signs Vital Sign Reading Time Taken Comments Blood Pressure 144/77 11/05/2022 8:10 AM APPLIQUER ZIGZAG Pulse 77 11/05/2022 8:10 AM APPLIQUER ZIGZAG Temperature 36.6 C (97.9 F) 11/05/2022 8:10 AM APPLIQUER ZIGZAG Respiratory Rate 16 11/05/2022 8:10 AM APPLIQUER ZIGZAG Oxygen Saturation 98% 11/05/2022 8:10 AM APPLIQUER ZIGZAG Inhaled Oxygen Concentration - - Weight 49 kg (108 lb) 11/05/2022 8:10 AM APPLIQUER ZIGZAG Height 149.9 cm (4' 11 ) 11/05/2022 8:10 AM APPLIQUER ZIGZAG Body Mass Index 21.81 11/05/2022 8:10 AM APPLIQUER ZIGZAG Plan of Treatment Health Maintenance Due Date Last Done Comments Breast Cancer Screening-Mammogram 1950 Colon Cancer Screening-Colonoscopy 1950 Depression Screening 1950 Fall Risk Assessment 1950 Hepatitis C Screening 1950 Osteoporosis Screening-Bone Density Scan 1950 DTaP/Tdap/Td Vaccine (1 - Tdap) 1961 Hepatitis B Screening 1968 Zoster Vaccine (1 of 2) 2000 Well Visit 65+ 12/26/2015 Pneumococcal vaccine 65+ (2 of 2 - PPSV23) 07/08/2020 07/08/2019 Influenza Vaccine (#1) 2024 07/08/2019, [address] [place] [address] [place] [id number] MEDIC[place] [address] Care Teams Flat Bed Knitter Relationship Specialty Start Date End Date Clifford Amaya MD PCP - General 07/08/17
--- OUTSIDE RECORDS SUMMARY | 2024-12-07 13:39 | XMS_ITS | Referral Summary ---
Author Organization [facility] Address [address] [place] [address] Care Team Providers Care Edge Bander Hand Name Role Phone Clifford Amaya MD Primary Care Provider [phone] [phone] Allergies No known active allergies Medications fluticasone [...] of humerus 03/06 Arthralgia of shoulder 01/16/2014 Social History Tobacco Use Types Packs/Day Years Used Date Smoking Tobacco: Never Smokeless Tobacco: Never Tobacco Cessation:Counseling Given: Not Answered Comments Unknown Sex and Gender Information Value Date Recorded Sex Assigned at Not on file Legal Sex Female 6:23 AM ELECTRICIAN ELEVATOR MAINTENANCE Gender Identity Not on file Sexual Orientation Not on file Last Filed Vital Signs Vital Sign Reading Time Taken Comments Blood Pressure 144/77 11/05/2022 8:10 AM ELECTRICIAN ELEVATOR MAINTENANCE Pulse 77 11/05/2022 8:10 AM ELECTRICIAN ELEVATOR MAINTENANCE Temperature 36.6 C (97.9 F) 11/05/2022 8:10 AM ELECTRICIAN ELEVATOR MAINTENANCE Respiratory Rate 16 11/05/2022 8:10 AM ELECTRICIAN ELEVATOR MAINTENANCE Oxygen Saturation 98% 11/05/2022 8:10 AM ELECTRICIAN ELEVATOR MAINTENANCE Inhaled Oxygen Concentration - - Weight 49 kg (108 lb) 11/05/2022 8:10 AM ELECTRICIAN ELEVATOR MAINTENANCE Height 149.9 cm (4' 11 ) 11/05/2022 8:10 AM ELECTRICIAN ELEVATOR MAINTENANCE Body Mass Index 21.81 11/05/2022 8:10 AM ELECTRICIAN ELEVATOR MAINTENANCE Plan of Treatment Not on file Insurance [place] [id number] [address] [employer] [phone] Care Teams Edge Bander Hand Relationship Specialty Start Date End Date Clifford Amaya MD PCP - General 07/08/17
--- OUTSIDE RECORDS SUMMARY | 2024-12-07 13:39 | XMS_ITS | Patient Health Summary ---
Author Organization [facility] [email or web address] Address [address] [place] [address] Care Team Providers Care Brim Ironer Hand Name Role Phone Unavailable Primary Care Provider Unavailabl e Note from [facility],non-owned Affiliates and Associated Physician Practices is amultiple site organization consisting of ambulatory clinics and hospital sitesin [place], [place], [place] and [place]. This disclosure is being madepursuant to the Care Everywhere program and may not contain all information available regarding this patient. Last updated 18.[facility] [email or web address] Allergies No known active allergies Medications * Be aware that medications may not be up to date on this document. Alwaysverify current medications with the patient. * fluticasone-salmeterol (ADVAIR DISKUS) 250-50 MCG/DOSE inhaler Inhale 1 Puff by mouth as needed * levothyroxine (SYNTHROID) 75 MCG tablet Take 75 mcg by mouth daily before breakfast. * metoprolol succinate XL 24hr (TOPROL XL) 25 MG tablet Take 25 mg by mouth daily. * Calcium 600 MG TABS Take by mouth daily. Social History Tobacco Use Types Packs/Day Years [...] Comments Blood Pressure 114/60 08/28/2009 11:46 AM MOTOR VEHICLE SALESPERSON Pulse 57 08/28/2009 11:46 AM MOTOR VEHICLE SALESPERSON Temperature 36.1 C (96.9 F) 08/28/2009 11:46 AM MOTOR VEHICLE SALESPERSON Respiratory Rate 18 08/28/2009 11:46 AM MOTOR VEHICLE SALESPERSON Oxygen Saturation 99% 08/28/2009 11:46 AM MOTOR VEHICLE SALESPERSON Inhaled Oxygen Concentration - - Weight 49 kg (108 lb) 08/27/2009 3:56 PM MOTOR VEHICLE SALESPERSON Height 149.9 cm (4' 11 ) 08/27/2009 3:56 PM MOTOR VEHICLE SALESPERSON Body Mass Index 21.81 08/27/2009 3:56 PM MOTOR VEHICLE SALESPERSON Procedures * CARDIAC ECHOCARDIOGRAM COMPLETE ORDER(Performed 09/06/2009) * LAB RESULTS ORDER(Performed 09/06/2009) * CARDIAC CATH CONSULT(Performed 08/28/2009) Results * LAB RESULTS ORDER (09/06/2009 10:00 PM MOTOR VEHICLE SALESPERSON) Narrative 09/06/2009 10:00 PM MOTOR VEHICLE SALESPERSON Ordered by an unspecified provider. Transcriptions Document, Scanned - 08/28/2009 12:00 AM MOTOR VEHICLE SALESPERSON Scanned Document LAB - THERAPEUTIC DR UG MONITORING ORDERABLES * CARDIAC ECHOCARDIOGRAM COMPLETE ORDER (09/06/2009 10:00 PM MOTOR VEHICLE SALESPERSON) Narrative 09/06/2009 10:00 PM MOTOR VEHICLE SALESPERSON Ordered by an unspecified provider. Transcriptions Document, Scanned - 08/28/2009 12:00 AM MOTOR VEHICLE SALESPERSON Scanned Document ECHO ORDERABLES * IP CONSULT TO CARD CATH (08/28/2009 7:18 AM MOTOR VEHICLE SALESPERSON) 08/28/2009 7:18 AM MOTOR VEHICLE SALESPERSON Narrative [facility] - 08/28/2009 8:11 AM [place] [address] Cardiovascular Catheterization Comprehensive Report Patient: MEETA WESTON MR number: [id number] Height: 59.1 in Weight: 107.8 lb BSA: 1.42 m Study date: 08/28/2009 : 1950 Age: 58 years Gender: Female Race: Diagnostic Petrophysical Engineer: Clifford Adams MD SUMMARY: -- CARDIAC STRUCTURES: -- EF calculated by contrast ventriculography was 50 %. -- Summary: False positive stress test with no CAD and Left-dominant circulation. PROCEDURES PERFORMED: -- Left heart catheterization with ventriculography. -- Left coronary angiography. -- Right coronary angiography. COMPLICATIONS: There were no complications. No complications occurred during the clinical laboratory science professor visit. INDICATIONS: Coronary artery disease: abnormal stress test. HEMODYNAMICS: -- Hemodynamic assessment demonstrated normal hemodynamics. VENTRICLES: -- There were no left ventricular global or regional wall motion abnormalities. -- EF calculated by contrast ventriculography was 50 %. CORONARY CIRCULATION: -- The coronary circulation is left dominant. -- Left main: Normal. -- LAD: Normal. -- Circumflex: Normal. -- RCA: Normal. PROCEDURE: The risks and alternatives of the procedures and conscious sedation were explained to the patient and informed consent was obtained. The patient was brought to the clinical laboratory science professor and placed on the table. The planned puncture sites were prepped and draped in the usual sterile fashion. -- Right femoral artery access. The puncture site was infiltrated with 1 % lidocaine. The vessel was accessed using the modified Seldinger technique, a wire was threaded into the vessel, and a sheath was advanced over the wire into the vessel. -- Left heart catheterization. A catheter was advanced to the ascending aorta. After recording ascending aortic pressure, the catheter was advanced across the aortic valve and left ventricular pressure was recorded. Ventriculography was performed using power injection of contrast agent. Imaging was performed using an HALL projection. -- Left coronary artery angiography. A catheter was advanced to the aorta and positioned in the vessel ostium under fluoroscopic guidance. Angiography was performed in multiple projections using hand-injection of contrast. -- Right coronary artery angiography. A catheter was advanced to the aorta and positioned in the vessel ostium under fluoroscopic guidance. Angiography was performed in multiple projections using hand-injection of contrast. PROCEDURE COMPLETION: TIMING: Test started at 07:32. Test concluded at 07:51. RADIATION EXPOSURE: Fluoroscopy time: 2.1 min. MEDICATIONS GIVEN: Midazolam, 2 mg, IV, at 07:30. 0.9 Saline, infusion rate of 7 ml/hr, IV, at 07:32. 1% Lidocaine, 13 ml, subcutaneously, at 07:32. CONTRAST GIVEN: Omnipaque 100 ml. Prepared and signed by Clifford Adams MD Signed 08/28/2009 08:14:00 STUDY DIAGRAM HEMODYNAMIC TABLES Pressures: Baseline Pressures: - HR: 89 Pressures: - Rhythm: Pressures: -- Left Ventricle (s/edp): 155/19/-- Pressures: -- m: 152/73/108 Outputs: Baseline Outputs: -- CALCULATIONS[age] Outputs: -- CALCULATIONS: Body Surface Area: 1.42 Outputs: -- CALCULATIONS: Height in cm: 150.00 Outputs: -- CALCULATIONS: Sex: Female Outputs: -- CALCULATIONS: Weight in k.00 Procedure Note 08/28/2009 [place] [id number] Cardiovascular Catheterization Comprehensive Report Patient: MEETA WESTON MR number: [id number] Height: 59.1 in Weight: 107.8 lb BSA: 1.42 m Study date: 08/28/2009 : 1950 Age: 58 years Gender: Female Race: Diagnostic Petrophysical Engineer: Clifford Adams MD SUMMARY: -- CARDIAC STRUCTURES: -- EF calculated by contrast ventriculography was 50 %. -- Summary: False positive stress test with no CAD and Left-dominant circulation. PROCEDURES PERFORMED: -- Left heart catheterization with ventriculography. -- Left coronary angiography. -- Right coronary angiography. COMPLICATIONS: There were no complications. No complications occurred during the clinical laboratory science professor visit. INDICATIONS: Coronary artery disease: abnormal stress test. HEMODYNAMICS: -- Hemodynamic assessment demonstrated normal hemodynamics. VENTRICLES: -- There were no left ventricular global or regional wall motion abnormalities. -- EF calculated by contrast ventriculography was 50 %. CORONARY CIRCULATION: -- The coronary circulation is left dominant. -- Left main: Normal. -- LAD: Normal. -- Circumflex: Normal. -- RCA: Normal. PROCEDURE: The risks and alternatives of the procedures and conscious sedation were explained to the patient and informed consent was obtained. The patient was brought to the clinical laboratory science professor and placed on the table. The planned puncture sites were prepped and draped in the usual sterile fashion. -- Right femoral artery access. The puncture site was infiltrated with 1 % lidocaine. The vessel was accessed using the modified Seldinger technique, a wire was threaded into the vessel, and a sheath was advanced over the wire into the vessel. -- Left heart catheterization. A catheter was advanced to the ascending aorta. After recording ascending aortic pressure, the catheter was advanced across the aortic valve and left ventricular pressure was recorded. Ventriculography was performed using power injection of contrast agent. Imaging was performed using an HALL projection. -- Left coronary artery angiography. A catheter was advanced to the aorta and positioned in the vessel ostium under fluoroscopic guidance. Angiography was performed in multiple projections using hand-injection of contrast. -- Right coronary artery angiography. A catheter was advanced to the aorta and positioned in the vessel ostium under fluoroscopic guidance. Angiography was performed in multiple projections using hand-injection of contrast. PROCEDURE COMPLETION: TIMING: Test started at 07:32. Test concluded at 07:51. RADIATION EXPOSURE: Fluoroscopy time: 2.1 min. MEDICATIONS GIVEN: Midazolam, 2 mg, IV, at 07:30. 0.9 Saline, infusion rate of 7 ml/hr, IV, at 07:32. 1% Lidocaine, 13 ml, subcutaneously, at 07:32. CONTRAST GIVEN: Omnipaque 100 ml. Prepared and signed by Clifford Adams MD Signed 08/28/2009 08:14:00 STUDY DIAGRAM HEMODYNAMIC TABLES Pressures: Baseline Pressures: - HR: 89 Pressures: - Rhythm: Pressures: -- Left Ventricle (s/edp): 155/19/-- Pressures: -- m: 152/73/108 Outputs: Baseline Outputs: -- CALCULATIONS[age] Outputs: -- CALCULATIONS: Body Surface Area: 1.42 Outputs: -- CALCULATIONS: Height in cm: 150.00 Outputs: -- CALCULATIONS: Sex: Female Outputs: -- CALCULATIONS: Weight in k.00 Clifford Adams MD ECHO ORDERABLES Performing Organization Address City/State/[facility] Co de Phone Number [facility] [address] [place] [address]
== END 2024-12-07 12:12 | disposition home or self-care (01) ==
LOC: ANHIMG 12:12
PROVIDERS: PCP Family Medicine; Visit Provider Family Medicine
DX: M85.89 Other specified disorders of bone density and structure, multiple sites (principal); Z13.820 Encounter for screening for osteoporosis
CPT/HCPCS: 77080

== ENCOUNTER 2025-06-10 12:45 | Emergency (ER) | payer MEDICARE, SELFPAY ==
--- NOTE | ~2025-06-10 | XR_ITS ---
EXAMINATION: XR hand LT min 3V DATE: 06/10/2025 13:29 INDICATION: Left hand pain post fall TECHNIQUE: Posteroanterior, oblique and lateral views of the left hand were obtained. COMPARISON: None. FINDINGS: Alignment is normal. Diffuse osteopenia. No fracture. Polyarticular osteoarthritis, severe at the first carpometacarpal joint and fifth distal interphalangeal joint, moderate severity at the second-fourth distal interphalangeal joints and at the second and third metacarpophalangeal joints and mild at many of the remaining joints at the left wrist and throughout the left hand. IMPRESSION: 1. Polyarticular osteoarthritis, severe at the first carpometacarpal joint and moderate to severe at the distal interphalangeal joints. No acute osseous adenopathy. Reviewed, dictated and finalized at location A. IMPRESSION: 1. Polyarticular osteoarthritis, severe at the first carpometacarpal joint and moderate to severe at the distal interphalangeal joints. No acute osseous adeno leigh ann.
[2025-06-10 12:57] VITALS: BP 109/62; PULSE 63; RESP 16; TEMP 37.1; O2SAT 100
--- NOTE | 2025-06-10 13:16 | ED.UPPEXIN ---
HPI - Extremity Injury (Upper) General Chief Complaint: Extremity Injury, Upper Stated Complaint: L HAND/L KNEE INJURY Time Seen by Provider: 06/10/25 13:16 Source: patient Mode of arrival: ambulatory Limitations: no limitations History of Present Illness HPI narrative: 74 y/o female presented for c/o left hand pain after falling today. She thought she had another stair but then fell and landed on the left side. Says she has arthritis and baseline swelling, which is unchanged. Denies deformity or bruising. Has not taken anything for symptoms. Also endorses some left hip and knee pain which she says it also at baseline. Related Data Home Medications ?Medication ?Instructions ?Recorded ?Confirmed ?Last Taken ?Type cholecalciferol (vitamin D3) 50 50 mcg PO DAILY 03/16/20 06/10/25 Unknown History mcg (2,000 unit) capsule calcium carbonate (Calcium 600) 600 mg PO BID 06/27/20 06/10/25 Unknown History Allergies Allergy/AdvReac Type Severity Reaction Status Date / Time No Known Allergies Allergy Unknown Verified 06/10/25 12:57 Review of Systems Review of Systems: CONSTITUTIONAL: Denies body aches, fever, chills EYES: Denies visual changes ENT: Denies rhinorrhea, congestion CARDIOVASCULAR: Denies chest pain, palpitations, or edema. RESPIRATORY: Denies cough or dyspnea. SKIN: Denies rash, itching, or wounds. MUSCULOSKELETAL: reports left thumb pain NEUROLOGIC: Denies headache, numbness, tingling, or weakness. All systems reviewed & are unremarkable except as noted in HPI and below PMFSH Past Medical History Medical History Prediabetes Osteopenia after menopause Sleep apnea with use of continuous positive airway pressure (CPAP) Scoliosis Essential (primary) hypertension Hypothyroidism (acquired) Surgical History Surgical History History of cataract surgery bilat History of shoulder surgery Family History Family History Mother Patient's mother is , Onset Age: 90 Hypertension Family history of elevated blood lipids Family history of cardiovascular disease Family history of lung cancer Father Patient's father is Family history of glaucoma Hypertension Family history of elevated blood lipids Family history of cardiovascular disease Social History Social History Smoking status: Never smoker Second hand tobacco smoke exposure: No Alcohol intake: current Alcohol use details: Very rarely maybe once a month. Substance use: never Substance use type: does not use Lack of Transportation: No Lack of Food: Never True Current Housing: I Have Housing Concerned About Future Housing: No Difficulty Paying Gas/Electric Bills: No Difficulty Paying for Meds: No Currently Unemployed: No Education: Master's Degree or Higher Difficulty w/ Childcare or Family Care: No Living arrangements: with family Occupation/Education: occupation Gender identity (if verbalized by the patient): Female Spiritual care concerns: No Agree to blood products: Yes Comments At time of signature, I have reviewed and agree with nursing past medical, surgical, social and family history unless otherwise noted. Please see nursing chart for further information. There is no relevant family history pertinent to the presenting complaint Exam Narrative: GENERAL: Well-appearing, well-nourished, and in no acute distress. CHEST: Speaks in full sentences. No respiratory distress. HEART: Regular rate and rhythm. Normal and equal peripheral pulses. EXTREMITIES: Left hand has normal strength and sensation, normal range of motion, but endorses pain with movement. Mild swelling to 1st MTP, appears chronic, Normal finger cascade. No ecchymosis, No point tenderness. No open wounds, or obvious deformity;pulse palpable and equal bilaterally, skin warm, dry, pink. Capillary refill less than 3 seconds. SKIN: Warm, dry, no rash. NEURO: Alert and oriented x3. PSYCH: Normal mood and affect Course Course Emergency Course: Patient is aware of diagnosis, understands and agrees to treatment plan. Anticipatory guidance given. Patient agrees to follow-up as directed and is aware of reasons to seek care at the emergency department. Portions of this record may have been created with voice recognition software Level of Care: Express Care Visit Vital Signs Vital signs: Vital Signs Temperature 98.7 F 06/10/25 12:57 Pulse Rate 63 06/10/25 12:57 Respiratory Rate 16 06/10/25 12:57 Blood Pressure 109/62 06/10/25 12:57 Pulse Oximetry 100 06/10/25 12:57 Temperature 98.7 F 06/10/25 12:57 Pulse Rate 63 06/10/25 12:57 Respiratory Rate 16 06/10/25 12:57 Blood Pressure 109/62 06/10/25 12:57 Pulse Oximetry 100 06/10/25 12:57 Reviewed MDM - Extremity Injury (Upper) MDM Narrative Medical decision making narrative: Discussed physical exam findings and x-ray. Patient declined Pato wrap. Advised supportive measures and signs/symptoms to go to the ER. Pt is appropriate for outpt treatment and f/u. Differential Diagnosis Differential diagnosis: Likely sprain and strain of wrist, fracture of wrist, finger sprain, dislocation of finger and fracture of hand Imaging Data Radiologist's impression: Patient: Meeta Weston : 1950 MR#: [id number] Age: 74 Acct:[id number] Loc: [facility] ADM Date: 06/10/25Attending Dr: EXAMINATION: XR hand LT min 3V DATE: 06/10/2025 13:29 INDICATION: Left hand pain post fall TECHNIQUE: Posteroanterior, oblique and lateral views of the left hand were obtained. COMPARISON: None. FINDINGS: Alignment is normal. Diffuse osteopenia. No fracture. Polyarticular osteoarthritis, severe at the first carpometacarpal joint and fifth distal interphalangeal joint, moderate severity at the second-fourth distal interphalangeal joints and at the second and third metacarpophalangeal joints and mild at many of the remaining joints at the left wrist and throughout the left hand. IMPRESSION: 1. Polyarticular osteoarthritis, severe at the first carpometacarpal joint and moderate to severe at the distal interphalangeal joints. No acute osseous adenopathy Discharge Plan Discharge Clinical Impression: Arthralgia Qualifiers: Joint pain location: hand Laterality: left Qualified Code(s): M25.542 - Pain in joints of left hand Patient Disposition: Home Condition: Stable Instructions: Antibiotic Form, Hand Sprain (ED) Additional Instructions: Rest and elevate the hand, activity as tolerated Apply ice 15-20 minute intervals several times a day Keep it wrapped with PATO or use a soft wrist splint (thumb spica) Motrin 600mg every 8 hours, alternate with Tylenol 1000mg every 8 hours as needed Follow up with your primary care provider Go to the ER for worsening symptoms or concerns Patient Language: Maltese Prescriptions: No Action cholecalciferol (vitamin D3) 50 mcg (2,000 unit) capsule 50 mcg PO DAILY calcium carbonate [Calcium 600] 600 mg calcium (1,500 mg) tablet 600 mg PO BID levothyroxine [Synthroid] 88 mcg tablet See Rx Instructions .ROUTE .COMPLEX Qty: 90 2RF Dose Instruction: TAKE 1 TABLET BY MOUTH DAILY Rx Instructions: TAKE 1 TABLET BY MOUTH DAILY levothyroxine [Synthroid] 75 mcg tablet 75 mcg PO .q od Qty: 90 1RF meloxicam 15 mg tablet 15 mg PO DAILY Qty: 90 1RF Breo Ellipta 100-25 mcg/dose blister with device 1 inh INHALATION DAILY Qty: 180 3RF amlodipine 10 mg tablet See Rx Instructions .ROUTE .COMPLEX Qty: 90 3RF Dose Instruction: TAKE 1 TABLET BY MOUTH EVERY DAY Rx Instructions: TAKE 1 TABLET BY MOUTH EVERY DAY trazodone 50 mg tablet 50 mg PO QHS Qty: 90 3RF spironolactone 25 mg tablet See Rx Instructions .ROUTE .COMPLEX Qty: 90 1RF Dose Instruction: TAKE 1 TABLET BY MOUTH EVERY DAY Rx Instructions: TAKE 1 TABLET BY MOUTH EVERY DAY hydrochlorothiazide 12.5 mg capsule See Rx Instructions .ROUTE .COMPLEX Qty: 90 1RF Dose Instruction: TAKE 1 CAPSULE BY MOUTH EVERY DAY Rx Instructions: TAKE 1 CAPSULE BY MOUTH EVERY DAY metoprolol succinate 50 mg tablet extended release 24 hr 100 mg PO DAILY Qty: 180 1RF rosuvastatin 5 mg tablet See Rx Instructions .ROUTE .COMPLEX Qty: 90 1RF Dose Instruction: TAKE 1 TABLET BY MOUTH EVERY DAY Rx Instructions: TAKE 1 TABLET BY MOUTH EVERY DAY metformin 500 mg tablet extended release 24 hr 1,000 mg PO DAILY Qty: 180 1RF Rx Instructions: Take with largest meal Follow-up/Referrals: Clifford Amaya MD [Primary Care Provider, Family Practice] Time of Disposition: 14:24
== END 2025-06-10 14:28 | disposition home or self-care (01) ==
PROVIDERS: Emergency Provider Nurse Practitioner Family; PCP Family Medicine
DX: M25.542 Pain in joints of left hand (principal); I10 Essential (primary) hypertension; E03.9 Hypothyroidism, unspecified; R73.03 Prediabetes; M41.9 Scoliosis, unspecified; M85.80 Other specified disorders of bone density and structure, unspecified site; G47.30 Sleep apnea, unspecified
CPT/HCPCS: 73130; 99213; G0463

== ENCOUNTER 2025-08-17 07:18 | Outpatient (CLI) | payer MEDICARE, SELFPAY ==
--- NOTE | ~2025-08-17 | MM_ITS ---
EXAMINATION: MM screening elroy BI w sarah HISTORY: Screening TECHNIQUE: Craniocaudal and mediolateral oblique 3-D tomosynthesis images were obtained and synthetic 2-D images were generated. CAD analysis was submitted and interpreted. COMPARISON: Comparison to multiple prior studies sequentially, with oldest reviewed study dated 01/03/2022. BREAST PARENCHYMAL COMPOSITION: Dense: The breasts are extremely dense, which lowers the sensitivity of mammography. FINDINGS: Bilateral breast asymmetries and calcifications are stable. There is no evidence of suspicious mass, calcification, or architectural distortion to suggest malignancy in either breast. There has been no suspicious interval change. IMPRESSION: 1. No mammographic evidence of malignancy. 2. Recommend routine screening mammography in one year. BI-RADS Category 2: Benign finding(s). Reviewed, dictated and finalized at location B. ILADA MAKER
== END 2025-08-17 07:19 | disposition home or self-care (01) ==
LOC: MICIMG 07:20
PROVIDERS: PCP Nurse Practitioner; Visit Provider Nurse Practitioner
DX: Z12.31 Encounter for screening mammogram for malignant neoplasm of breast (principal)
CPT/HCPCS: 77063; 77067